=== PATIENT | female | born 1940 | race Hispanic/Latino ===

== ENCOUNTER 2020-10-21 06:18 | Day surgery (SDC) | payer MEDICARE, OTHER ==
[2020-10-21] MEDS ORDERED: ASPIRIN EC 325 MG TAB PO ONE (07:12)
[2020-10-21 07:56] LABS: Basophils # (Auto) 0.1 K/mm3 (0.0-0.1); Basophils % (Auto) 0.8 % (0.0-1.8); Eosinophils # (Auto) 0.2 K/mm3 (0.0-0.4); Eosinophils % (Auto) 2.6 % (0.0-4.3); Hematocrit 37.5 % (30.3-42.9); Hemoglobin 12.6 gm/dl (10.1-14.3); Lymphocytes # (Auto) 2.6 K/mm3 (1.2-5.4); Lymphocytes % (Auto) 28.5 % (13.4-35.0); Mean Corpuscular HGB Conc 34 % (30-34); Mean Corpuscular Volume 89 fl (79-97); Monocytes # (Auto) 0.8 K/mm3 (0.0-0.8); Monocytes % (Auto) 8.5 % (0.0-7.3); Platelet Count 193 K/mm3 (140-440); Red Blood Count 4.22 M/mm3 (3.65-5.03); Red Cell Distribution Width 16.3 % (13.2-15.2)
[2020-10-21 08:06] LABS: INR 0.9 (0.87-1.13)
[2020-10-21 08:07] LABS: Partial Thromboplastin Time 24.1 Sec. (24.2-36.6)
[2020-10-21 08:16] LABS: Blood Urea Nitrogen 19 mg/dL (7-17); Calcium 9.2 mg/dL (8.4-10.2); Hemolysis Index 8
[2020-10-21 08:22] LABS: BUN/Creatinine Ratio 32
[2020-10-21] MEDS ORDERED: HEPARIN/NS 5000 UNIT/500ML 1,000 ML IR ONE (10:00)
[2020-10-21] MEDS: fentaNYL 100 MCG/2 ML INJ ONE ×3 (10:45→11:00)
[2020-10-21] MEDS: MIDAZOLAM 2 MG/2 ML INJ ONE ×5 (10:45→11:00)
[2020-10-21] MEDS: LIDOCAINE (2%) 20 MG/1 ML VIAL 20 ML MDV INFILTRATI ONE ×3 (10:45→10:56)
[2020-10-21] MEDS: HEPARIN 10,000 UNITS/10 ML VIAL ONE ×3 (10:46→10:59)
[2020-10-21] MEDS: SODIUM CHLORIDE 0.9% 500 ML 500 ML IV SCH ×2 (10:46→10:47)
[2020-10-21] MEDS: VERAPAMIL 5 MG/2 ML INJ ONE ×3 (10:46→10:59)
[2020-10-21] MEDS: NITROGLYCERIN SYRINGE 3 ML ONE ×3 (10:47→11:00)
[2020-10-21] MEDS ORDERED: fentaNYL 100 MCG/2 ML INJ ONE (10:58)
[2020-10-21] MEDS ORDERED: HYDROcodone/ACETAMINOPHEN 5-325 MG TAB PO PRN (11:17)
[2020-10-21] MEDS ORDERED: traMADol 50 MG TAB PO PRN (11:17)
--- NOTE | 2020-10-21 11:19 | Short Stay Summary ---
Short Stay Documentation Date of service: 10/21/20 - History H&P: obtained from office - Allergies and Medications Current Medications: Allergies nortriptyline Allergy (Verified 10/21/20 06:57) Unknown Home Medications Medication Instructions Recorded Confirmed Last Taken Type Aspirin EC [Halfprin EC] 81 mg PO DAILY 10/21/20 10/21/20 10/20/20 History 81 mg Gabapentin 100 mg PO HS 10/21/20 10/21/20 10/20/20 History 100 mg HYDROcodone/APAP 5-325 [[place] 1 tab PO BID 10/21/20 10/21/20 10/20/20 History 5-325 mg TAB] 1 tab Losartan [Cozaar] 25 mg PO DAILY 10/21/20 10/21/20 10/20/20 History 25 mg Niacin (Inositol Niacinate) 500 mg PO DAILY 10/21/20 10/21/20 10/20/20 History [Niacin 500 mg Capsule] 500 mg Omeprazole 20 mg PO BID 10/21/20 10/21/20 10/20/20 History 20 mg Rivastigmine [Exelon Patch 9.5 mg TRANSDERMA DAILY 10/21/20 10/21/20 10/20/20 History 9.5mg/24hr] 1 patch Sertraline [Zoloft] 100 mg PO HS 10/21/20 10/21/20 10/20/20 History 100 mg Vit B Comp/C/Folic/Iron/Vit E 1 tab PO DAILY 10/21/20 10/21/20 10/20/20 History [Stress-C with Iron Tablet] 1 Tab tiZANidine [Zanaflex 4mg TAB] 4 mg PO BID 10/21/20 10/21/20 10/20/20 History 4 mg Active Medications Sodium Chloride (Nacl 0.9% 500 Ml) 500 mls @ 50 mls/hr IV DIRECT HEMANTH Stop: 10/21/20 16:59 Last Admin: 10/21/20 10:47 Dose: 100 mls Documented by: - Brief post op/procedure progress note Date of procedure: 10/21/20 Pre-op diagnosis: sob and abnl stress test Post-op diagnosis: other Procedure: see report Anesthesia: local Estimated blood loss: minimal Pathology: none - Disposition Condition at discharge: Good Disposition: [id number] TO HOME OR SELFCARE Short Stay Discharge Plan Activity: advance as tolerated Diet: low fat, low cholesterol, low salt Wound: keep clean and dry Follow up with: JAKOB TYLER MD [Primary Care Provider] - 7 Days
--- NOTE | 2020-10-21 14:09 | Cardiac Catherization Report ---
DATE OF SERVICE: 10/21/2020 LEFT HEART CATHETERIZATION ORDERING PHYSICIAN: Mitul Colvin M.D. CLINICAL INFORMATION: This is a 80-year-old female with shortness of breath, abnormal stress test, here for left heart catheterization. Procedure was done with moderate sedation, start at 10:47, finish at 11:07, 18 minutes of moderate sedation. DESCRIPTION OF PROCEDURE: Two procedures were done. 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 A 5-[place] venous sheath placed and we placed a right radial sheath by the sterile technique, local anesthesia. A 6-[place] radial sheath inserted. Left system JL3.5 catheter, left main is large and patent, bifurcates to large lad. Mid to distal LAD becomes small to medium caliber vessel patent with moderate tortuosity. Diagonal 1 is small to medium caliber vessel patent. Circumflex medium caliber vessel is patent. Goes into small to medium caliber. OM1 and OM2 are patent with moderate tortuosity. RCA engage where a JR4 is a large dominant vessel with moderate to severe tortuosity. PDA and PLV are small to medium caliber vessel and patent. LV gram done in LA and RV shows normal LV function, EF 55-60%, LVEDP 30 mmHg. LV is 134, aortic is 134/64. No gradient across the aortic valve on pullback. A 5-[place] catheters, all taken under guidewires, a 6-[place] radial sheath was discontinued. Radial band applied. No hematoma, no bleeding. SUMMARY: Left main, patent, LAD patent. Moderate tortuosity. Circumflex patent. OM1 and OM2 patent. RCA large, dominant, patent. Moderate severe tortuosity. Normal LV function. Continue risk factor modification. TID: [id number] RECEIPT: [id number] DEREK/GISEL/HERB STONED
[2020-10-21 14:51] VITALS: BP 121/49
--- NOTE | 2020-10-22 10:21 | Electrocardiograph Report ---
[facility] Test Date: 2020-10-21 Test Time: 07:25:53 Pat Name: ALIA MARTI Department: Room: Gender: F Senior Research Analyst: CANDICE : 1940 Requested By: DIANE POOLE Order Number: [id number] Reading MD: Diane Poole Measurements Intervals [place] Rate: 65 P: 43 NC: 151 QRS: 15 QRSD: 107 T: 75 QT: 430 QTc: 449 Interpretive Statements Sinus rhythm RSR' IN V1 OR V2, PROBABLY NORMAL VARIANT No previous ECG available for comparison Electronically Signed On 10-22-2020 10:21:13 EDT by Diane Poole
== END 2020-10-21 15:28 | disposition home or self-care (01) ==
LOC: CATHLABREC 06:18
PROVIDERS: ATTEND Internal Medicine
DX: R06.02 Shortness of breath (principal); R94.39 Abnormal result of other cardiovascular function study; I42.9 Cardiomyopathy, unspecified; M19.90 Unspecified osteoarthritis, unspecified site; K21.9 Gastro-esophageal reflux disease without esophagitis; G89.29 Other chronic pain; Z88.8 Allergy status to other drugs, medicaments and biological substances; Z79.82 Long term (current) use of aspirin; Z90.49 Acquired absence of other specified parts of digestive tract; Z79.899 Other long term (current) drug therapy; Z87.891 Personal history of nicotine dependence; Z90.710 Acquired absence of both cervix and uterus; Z98.890 Other specified postprocedural states; Z80.8 Family history of malignant neoplasm of other organs or systems; Z86.2 Personal history of diseases of the blood and blood-forming organs and certain disorders involving the immune mechanism
CPT/HCPCS: 36415; 80048; 85025; 85610; 85730; 93005; 93458; 99156; C1894; J1644; J2250; J3010; J7040; Q9967